=== PATIENT | male | born 1945 | race African-American/Black ===

== ENCOUNTER 2016-05-03 09:07 | Emergency (ER) | payer MEDICARE, MEDICAID ==
[2016-05-03 09:12] VITALS: BP 130/77
[2016-05-03] MEDS ORDERED: ALBUTEROL SULFATE HFA (90 MCG/PUFF) 8 GM MDI (1 MDI/ER DISP) IH ONE (09:52)
--- NOTE | 2016-05-03 09:55 | ER Document Report ---
ED General - General Chief Complaint: Cold Symptoms Stated Complaint: COUGH TRAVEL OUTSIDE OF THE [place] IN LAST 30 DAYS: No - HPI Patient complains to provider of: cough and flulike symptoms Notes: Patient coming in flulike symptoms feeling unwell myalgias cough fevers chills off and on for the last 4 days. Patient is a nonsmoker denies any recent travel or antibiotics. A she did not receive a flu shot this year patient otherwise is having a medical problems according to himself. Sent for hypertension. Patient denies any sick contacts. - Related Data Allergies/Adverse Reactions: No Known Allergies Allergy (Verified 05/03/16 09:07) Past Medical History - Social History Smoking Status: Former Smoker Chew tobacco use (# tins/day): No Frequency of alcohol use: None Drug Abuse: None Family History: Reviewed & Not Pertinent Patient has suicidal ideation: No Patient has homicidal ideation: No - Past Medical History Cardiac Medical History: Reports: Hx Hypercholesterolemia, Hx Hypertension Pulmonary Medical History: Reports: Hx COPD Renal/ Medical History: Denies: Hx Peritoneal Dialysis Review of Systems - Review of Systems Constitutional: No symptoms reported EENT: No symptoms reported Cardiovascular: No symptoms reported Respiratory: Cough Gastrointestinal: No symptoms reported Genitourinary: No symptoms reported Male Genitourinary: No symptoms reported Musculoskeletal: No symptoms reported Skin: No symptoms reported Hematologic/Lymphatic: No symptoms reported Neurological/Psychological: No symptoms reported -: Yes All other systems reviewed and negative Physical Exam - Vital signs Vitals: Temp Pulse Resp BP Pulse Ox 98.2 F 110 H 12 130/77 H 93 05/03/16 09:10 05/03/16 09:10 05/03/16 09:10 05/03/16 09:10 05/03/16 09:10 Interpretation: Normal - General General appearance: Appears well, Alert - HEENT Head: Normocephalic, Atraumatic Eyes: Normal Pupils: PERRL - Respiratory Respiratory status: No respiratory distress Chest status: Nontender Breath sounds: Wheezing - Fine wheezes Chest palpation: Normal - Cardiovascular Rhythm: Regular Heart sounds: Normal auscultation Murmur: No - Abdominal Inspection: Normal Distension: No distension Bowel sounds: Normal Tenderness: Nontender Organomegaly: No organomegaly - Back Back: Normal, Nontender - Extremities General upper extremity: Normal inspection, Nontender, Normal color, Normal ROM , Normal temperature General lower extremity: Normal inspection, Nontender, Normal color, Normal ROM , Normal temperature, Normal weight bearing. No: Kashif's sign - Neurological Neuro grossly intact: Yes Cognition: Normal Orientation: AAOx4 Juan R Coma Scale Eye Opening: Spontaneous [place] Coma Scale Verbal: Oriented Dante Coma Scale Motor: Obeys Commands Juan R Coma Scale Total: 15 Speech: Normal Motor strength normal: LUE, RUE, LLE, RLE Sensory: Normal - Psychological Associated symptoms: Normal affect, Normal mood - Skin Skin Temperature: Warm Skin Moisture: Dry Skin Color: Normal Course - Re-evaluation Re-evalutation: 05/03/16 14:28 Patient's chest x-ray is negative for pneumonia. Patient more likely has a viral syndrome viral upper respiratory infection. Patient was treated with bronchodilators and steroids. Patient was grateful for his care. Educated patient about these Tessalon Perles and also [id number] cough suppressant such as cough syrups and honey. Patient states understanding will follow his primary care physician will be discharged home. - Vital Signs Vital signs: Temp Pulse Resp BP Pulse Ox 98.2 F 110 H 12 130/77 H 93 05/03/16 09:10 05/03/16 09:10 05/03/16 09:10 05/03/16 09:10 05/03/16 09:10 Discharge - Discharge Clinical Impression: Bronchitis Condition: Good Disposition: HOME, SELF-CARE Instructions: Bronchitis ([facility]) Additional Instructions: Follow-up with your primary care physician. Take medication as prescribed. Return to the ER symptoms worsen. Prescriptions: Amoxicillin Trihydrate [Amoxil 500 mg Capsule] 500 mg PO TID 7 Days Prednisone [Deltasone] 40 mg PO DAILY 5 Days Referrals: CARLITA HUFFMAN MD [Primary Care Provider] - Follow up in 3-5 days
== END 2016-05-03 10:10 | disposition home or self-care (01) ==
LOC: ER 09:07
DX: J44.9 Chronic obstructive pulmonary disease, unspecified (principal); R05 Cough; M79.1 Myalgia; R50.9 Fever, unspecified; I10 Essential (primary) hypertension; Z87.891 Personal history of nicotine dependence
CPT/HCPCS: 99283; J3490

== ENCOUNTER 2016-06-10 07:49 | Emergency (ER) | payer MEDICARE, MEDICAID ==
--- NOTE | 2016-06-10 10:48 | ER Document Report ---
ED General - General Chief Complaint: Constipation Stated Complaint: ABDOMINAL PAIN Mode of Arrival: Ambulatory Information source: Patient Notes: 71 yr old male presents with complaints of chronic constipation. Notes he will have bowel movements once a week. Saw dr gonsales yesterday started on miralax. pt denies any abd pain or vomiting TRAVEL OUTSIDE OF THE [place] IN LAST 30 DAYS: No - HPI Onset: Other Onset/Duration: Persistent Quality of pain: No pain Severity: Mild Pain Level: Denies Associated symptoms: Other Exacerbated by: Denies Relieved by: Denies Similar symptoms previously: Yes Recently seen / treated by doctor: Yes - Related Data Allergies/Adverse Reactions: No Known Allergies Allergy (Verified 06/10/16 07:52) Past Medical History - Social History Smoking Status: Former Smoker Cigarette use (# per day): No Chew tobacco use (# tins/day): No Smoking Education Provided: No Frequency of alcohol use: None Drug Abuse: None Family History: Reviewed & Not Pertinent Patient has suicidal ideation: No Patient has homicidal ideation: No - Past Medical History Cardiac Medical History: Reports: Hx Hypercholesterolemia, Hx Hypertension Pulmonary Medical History: Reports: Hx COPD Renal/ Medical History: Denies: Hx Peritoneal Dialysis Surgical Hx: Negative Review of Systems - Review of Systems Notes: REVIEW OF SYSTEMS: CONSTITUTIONAL : Denies fever, chills, or sweats. Denies recent illness. EENT: Denies eye, ear, throat, or mouth pain or symptoms. Denies nasal or sinus congestion or discharge. Denies throat, tongue, or mouth swelling or difficulty swallowing. CARDIOVASCULAR: Denies chest pain. Denies palpitations or racing or irregular heart beat. Denies ankle edema. RESPIRATORY: Denies cough, cold, or chest congestion. Denies shortness of breath, difficulty breathing, or wheezing. GASTROINTESTINAL: Constipation GENITOURINARY: Denies difficulty urinating, painful urination, burning, frequency, blood in urine, or discharge. MUSCULOSKELETAL: Denies back or neck pain or stiffness. Denies joint pain or swelling. SKIN: Denies rash, lesions or sores. HEMATOLOGIC : Denies easy bruising or bleeding. LYMPHATIC: Denies swollen, enlarged glands. NEUROLOGICAL: Denies confusion or altered mental status. Denies passing out or loss of consciousness. Denies dizziness or lightheadedness. Denies headache. Denies weakness or paralysis or loss of use of either side. Denies problems with gait or speech. Denies sensory loss, numbness, or tingling. Denies seizures. PSYCHIATRIC: Denies anxiety or stress. Denies depression, suicidal ideation, or homicidal ideation. ALL OTHER SYSTEMS REVIEWED AND NEGATIVE. Dictation was performed using [employer] voice recognition software PHYSICAL EXAMINATION: GENERAL: Well-appearing, well-nourished and in no acute distress. HEAD: Atraumatic, normocephalic. EYES: Pupils equal round and reactive to light, extraocular movements intact, sclera anicteric, conjunctiva are normal. ENT: Nares patent, oropharynx clear without exudates. Moist mucous membranes. NECK: Normal range of motion, supple without lymphadenopathy LUNGS: Breath sounds clear to auscultation bilaterally and equal. No wheezes rales or rhonchi. HEART: Regular rate and rhythm without murmurs ABDOMEN: Soft, nontender, nondistended abdomen. No guarding, no rebound. No masses appreciated. Musculoskeletal: Normal range of motion, no pitting or edema. No cyanosis. NEUROLOGICAL: Cranial nerves grossly intact. Normal speech, normal gait. Normal sensory, motor exams PSYCH: Normal mood, normal affect. SKIN: Warm, Dry, normal turgor, no rashes or lesions noted. Physical Exam - Vital signs Vitals: Temp Pulse Resp BP Pulse Ox 98.9 F 98 18 143/83 H 97 06/10/16 07:54 06/10/16 07:54 06/10/16 07:54 06/10/16 07:54 06/10/16 07:54 Course - Re-evaluation Re-evalutation: 06/10/16 12:01 Very happy well-appearing male no distress. Patient just requests medication, acute abdominal series was negative After performing a Medical Screening Examination, I estimate there is LOW risk for ACUTE APPENDICITIS, BOWEL OBSTRUCTION, ACUTE CHOLECYSTITIS, PERFORATED DIVERTICULITIS, INCARCERATED HERNIA, PANCREATITIS, or PERFORATED ULCER, thus I consider the discharge disposition reasonable. Also, there is no evidence or peritonitis, sepsis, or toxicity. The patient and I have discussed the diagnosis and risks, and we agree with discharging home with close follow-up with the understanding that symptoms and presentations can change. We also discussed returning to the Emergency Department immediately if new or worsening symptoms occur. We have discussed the symptoms which are most concerning (e.g., bloody stool, fever, changing or worsening pain, intractable vomiting - standard verbal up date) that necessitate immediate return. - Vital Signs Vital signs: Temp Pulse Resp BP Pulse Ox 98.9 F 98 18 143/83 H 97 06/10/16 07:54 06/10/16 07:54 06/10/16 07:54 06/10/16 07:54 06/10/16 07:54 - Diagnostic Test Radiology reviewed: Image reviewed, Reports reviewed Discharge - Discharge Clinical Impression: Constipation Qualifiers: Constipation type: unspecified constipation type Qualified Code(s): K59.00 - Constipation, unspecified Condition: Stable Disposition: HOME, SELF-CARE Instructions: Constipation ([facility]) Prescriptions: Magnesium Citrate 295 ml PO DAILY #1 solution Referrals: CARLITA GONSALES MD [Primary Care Provider] - Follow up tomorrow
[2016-06-10 11:54] VITALS: BP 118/78
== END 2016-06-10 11:15 | disposition home or self-care (01) ==
LOC: ER 07:49
DX: K59.00 Constipation, unspecified (principal); I10 Essential (primary) hypertension; J44.9 Chronic obstructive pulmonary disease, unspecified; Z87.891 Personal history of nicotine dependence
CPT/HCPCS: 74022; 99283

== ENCOUNTER 2018-03-08 09:32 | Emergency (ER) | payer MEDICARE, MEDICAID ==
[2018-03-08] MEDS ORDERED: ACETAMINOPHEN 325 MG TABLET PO ONE (10:00)
[2018-03-08] MEDS ORDERED: LIDOCAINE 5% (700 MG) TRANSDERMAL ADH..PATCH TP ONE (10:01)
--- NOTE | 2018-03-08 10:15 | ER Document Report ---
ED Medical Screen (RME) - General Chief Complaint: Neck Pain < 24hrs old Stated Complaint: NECK PAIN Time Seen by Provider: 03/08/18 09:55 Mode of Arrival: Ambulatory Information source: Patient TRAVEL OUTSIDE OF THE [place] IN LAST 30 DAYS: No - HPI Patient complains to provider of: Neck pain Onset: Other - 72-year-old male with a past medical history significant for hyper lipidemia as well as hypertension that presents for evaluation of pain in the neck. Went to sleep in his usual state of health says that he woke up and had some pain in the neck. He denies any recent trauma, fevers, chills, lightheadedness, abdominal pain diarrhea constipation chest pain shortness of breath diaphoresis. Says that this is happened once in the past and at that time it was attributed to a muscle strain. Nothing is seem to make it better, he did take a BC powder this morning which did seem to ease it up a little bit. It is made worse by trying to move it. - Related Data Allergies/Adverse Reactions: No Known Allergies Allergy (Verified 03/08/18 09:33) Past Medical History - General Information source: Patient - Social History Cigarette use (# per day): No Frequency of alcohol use: None Drug Abuse: None - Past Medical History Cardiac Medical History: Reports: Hx Hypercholesterolemia, Hx Hypertension Pulmonary Medical History: Reports: Hx COPD Renal/ Medical History: Denies: Hx Peritoneal Dialysis Review of Systems - Review of Systems -: Yes All other systems reviewed and negative Physical Exam - Vital signs Vitals: Temp Pulse Resp BP Pulse Ox 98.0 F 83 18 133/75 H 100 03/08/18 09:51 03/08/18 09:51 03/08/18 09:51 03/08/18 09:51 03/08/18 09:51 Interpretation: Normal - General General appearance: Appears well, Alert - HEENT Head: Normocephalic, Atraumatic Eyes: Normal Pupils: PERRL Neck: Other - Tenderness to palpation over the left trapezius - Respiratory Respiratory status: No respiratory distress Chest status: Nontender Breath sounds: Normal Chest palpation: Normal - Cardiovascular Rhythm: Regular Heart sounds: Normal auscultation Murmur: No - Abdominal Inspection: Normal Distension: No distension Bowel sounds: Normal Tenderness: Nontender Organomegaly: No organomegaly - Back Back: Normal, Nontender - Extremities General upper extremity: Normal inspection, Nontender, Normal color, Normal ROM, Normal temperature General lower extremity: Normal inspection, Nontender, Normal color, Normal ROM, Normal temperature, Normal weight bearing. No: Kashif's sign - Neurological Neuro grossly intact: Yes Cognition: Normal Orientation: AAOx4 Juan R Coma Scale Eye Opening: Spontaneous [place] Coma Scale Verbal: Oriented Juan R Coma Scale Motor: Obeys Commands [place] Coma Scale Total: 15 Speech: Normal Motor strength normal: LUE, RUE, LLE, RLE Sensory: Normal - Psychological Associated symptoms: Normal affect, Normal mood - Skin Skin Temperature: Warm Skin Moisture: Dry Skin Color: Normal Course - Re-evaluation Re-evalutation: 03/08/18 10:15 72-year-old neurologically intact gentleman the presents for evaluation of atraumatic pain in the neck he woke up after sleeping with this pain. Took a BC powder which seemed to help a little bit but was concerned so came forward. He has had a muscle spasm in the past which felt similar to this. Given his age we will proceed with cervical spine imaging. Do not believe this represents a serious likely fracture however underlying will administer Tylenol for analgesia and administer Lidoderm patch. We will plan for reassessment in the emergency department thereafter. 03/08/18 10:38 On reevaluation this patient has improvement in his symptoms, he is able to range of some neck more readily, his CT scan shows chronic changes without any acute findings. Believe he is safe for discharge with return precautions and conservative man agement at home. He and his were counseled at the bedside and offered a chance to ask questions. At the time of discharge she was ambulatory without any assistance neurologically intact. - Vital Signs Vital signs: Temp Pulse Resp BP Pulse Ox 98.0 F 83 18 133/75 H 100 03/08/18 09:51 03/08/18 09:51 03/08/18 09:51 03/08/18 09:51 03/08/18 09:51 Doctor's Discharge - Discharge Clinical Impression: Cervicalgia, Muscle spasm Condition: Good Disposition: HOME, SELF-CARE Instructions: Neck [facility] (Cervical Strain) ([facility]) Additional Instructions: You were seen today for your neck strain. You had evaluation including a physical exam and a CAT scan of your neck. You should use Tylenol, 1000 mg every 6 hours as needed for pain. This is usually 3 tablets of the normal strength Tylenol. You can use 400 mg of ibuprofen every 6 hours as well as needed for pain. You have been given a prescription for a stronger muscle relaxer, use this only if you need it. Return in case you have any worsening pain in the neck, numbness or weakness or feel like you are unable to walk. Prescriptions: Acetaminophen [Tylenol 325 mg Tablet] 975 mg PO Q6HP PRN #60 tablet PRN Reason: Cyclobenzaprine HCl [Flexeril 5 mg Tablet] 5 mg PO TID #15 tablet Ibuprofen [Ibu] 400 mg PO Q6 PRN #40 tablet PRN Reason: Referrals: CARLITA HUFFMAN MD [Primary Care Provider] - Follow up as needed
--- NOTE | 2018-03-08 10:29 | RADIOLOGY REPORT (SQ) ---
EXAM DESCRIPTION: CT CERVICAL SPINE WITHOUT COMPLETED DATE/TIME: 03/08/2018 10:18 am REASON FOR STUDY: concern for facet injury left sided COMPARISON: None. TECHNIQUE: Axial images acquired through the cervical spine without intravenous contrast. Images re viewed with lung, soft tissue and bone windows. Reconstructed coronal and sagittal MPR images review ed. Images stored on PACS. All CT scanners at this facility use dose modulation, iterative reconstruction, and/or weight based d osing when appropriate to reduce radiation dose to as low as reasonably achievable (ALARA). [facility]: Dose Right [facility]: CareDose [facility]: Dose Right [facility]: Teradose 4D [facility]: Smart Ning RADIATION DOSE: CT Rad equipment meets quality standard of care and radiation dose reduction techniq ues were employed. CTDIvol: 15.0 mGy. DLP: 322 mGy-cm. mGy. LIMITATIONS: None. FINDINGS: ALIGNMENT: Anatomic. MINERALIZATION: Normal. VERTEBRAL BODIES: No fractures or dislocation. DISCS: Multilevel disc space narrowing with osteophytes. FACETS, LATERAL MASSES, POSTERIOR ELEMENTS: Facet arthropathy. No fractures. No dislocation. No ac afia findings. HARDWARE: None in the spine. VISUALIZED RIBS: No fractures. LUNG APICES AND SOFT TISSUES: No significant or acute findings. OTHER: No other significant finding. IMPRESSION: CHRONIC DEGENERATIVE CHANGES. NO ACUTE FINDINGS. TECHNICAL DOCUMENTATION: JOB ID: [id number] Quality ID # [id number]: Final reports with documentation of one or more dose reduction techniques (e.g., Au tomated exposure control, adjustment of the mA and/or kV according to patient size, use of iterative reconstruction technique) 2010 [employer]- All Rights Reserved Reading location - IP/workstation name: [email or web address]
[2018-03-08 10:48] VITALS: BP 117/78
== END 2018-03-08 10:49 | disposition home or self-care (01) ==
LOC: ER 09:32
DX: M62.830 Muscle spasm of back (principal); M54.2 Cervicalgia; E78.5 Hyperlipidemia, unspecified; I10 Essential (primary) hypertension
CPT/HCPCS: 99283; 72125; A9270

== ENCOUNTER 2018-04-05 07:27 | Day surgery (SDC) | payer MEDICARE, MEDICAID ==
[~2018-04-05 07:27] MED LIST: BUPIVACAINE HCL 0.75% INJ/PF (7.5 MG/1 ML) 10 ML SDV OD PRN; KETOROLAC TROMETHAMINE 0.45% 4 DROP/0.4 ML DROPERETTE OD PRN; LIDOCAINE 4% INJ/PF (40 MG/ML) 5 ML AMPUL OD PRN
[2018-04-05] MEDS: TETRACAINE HCL 0.5% OPH SOLN 0.6 ML DROPERETTE OD PRN ×2 (07:54→08:18)
[2018-04-05] MEDS: BESIFLOXACIN HCL 0.6% OPH SUSP 5 ML BOTTLE OD PRN ×4 (07:55→09:10)
[2018-04-05] MEDS: TROPICAMIDE 1% OPH SOLN 3 ML OD PRN ×3 (07:55→08:16)
[2018-04-05] MEDS: CYCLOPENTOLATE 0.2%/PHENYLEPHRINE 1% OPH SOLN 2 ML OD PRN ×3 (07:55→08:16)
[2018-04-05] MEDS ORDERED: MIDAZOLAM 2 MG/2 ML INJ ONE (08:12)
[2018-04-05] MEDS ORDERED: FENTANYL CITRATE INJ/PF 100 MCG/2 ML AMPUL ONE (08:12)
[2018-04-05] MEDS: EPINEPHRINE INJ/PF 1 MG/1 ML AMPULE ONE ×2 (08:55)
[2018-04-05] MEDS: CHONDR SU A NA/HYALUR INTRAOC KIT (SURGICARE) ONE ×2 (08:55)
[2018-04-05] MEDS: LIDOCAINE 1% INJ-PF (10 MG/ML) 30 ML SDV ONE ×2 (08:55)
--- NOTE | 2018-04-05 09:42 | [facility] OPERATIVE REPORT E ---
[facility] Operative Report NAME: WILLIE ROBERT AGE: 73Y DATE OF SURGERY: 04/05/2018 ROOM: PREOPERATIVE DIAGNOSIS: Cataract, right eye. POSTOPERATIVE DIAGNOSIS: Cataract, right eye. PROCEDURE PERFORMED: Phacoemulsification with posterior chamber intraocular lens, right eye. SURGEON: NEIL HIDALGO M.D. ANESTHESIA: Topical with MAC. INDICATIONS FOR SURGERY: Difficulty reading small print and driving. PROCEDURE: The patient was brought to the operating room and placed on the operative table. Following tetracaine drops, topical anesthesia was administered. This consisted of instrument wipe pledgets soaked in a solution of 4% Xylocaine mixed with 0.75% Marcaine in a 1:2 ratio. A 2 x 1 cm pledget was placed in the superior fornix. A 1 x 1 cm pledget was placed in the inferior fornix. The eye was patched shut for 5 minutes. The patch was removed. The eye was sterilely prepped and draped in the usual manner. Lid speculum was placed in the eye. The pledgets were removed and 4-0 black silk sutures were placed around the superior and the inferior rectus muscles to be used as traction. A conjunctival peritomy was made at the 10 o'clock position. Hemostasis was obtained with bipolar cautery. A posterior limbal groove was created using a crescent knife and dissected anteriorly towards the cornea. A sharp point blade was used to create a paracentesis site at the 2 o'clock position. A 2.4 mm keratome was used to enter the anterior chamber through the groove. Viscoelastic was injected into the anterior chamber. An anterior capsulotomy was performed using Utrata forceps in a capsulorrhexis fashion. Hydrodissection and hydrodelineation were performed. Phacoemulsification was performed in [id number]-gwh-[id number] technique. Total phaco time was 6.54 CDE. Following this, the I/A unit was used to remove residual cortex. Viscoelastic was injected into the capsular bag. Intraocular lens model [id number], 18.5 diopters, serial number [id number], was placed in the capsular bag. The I/A unit was used to remove residual viscoelastic. The wound was seen to be watertight under high and low pressure, and no sutures were placed. The intraocular lens was well centered. The pressure was adjusted in the eye to normal pressure. The 4-0 black silk sutures and lid speculum were removed. The eye was shielded after Besivance drops were placed. The patient tolerated the procedure well and was sent to the recovery room in good condition. DICTATING PHYSICIAN: NEIL HIDALGO M.D. [id number] PHY#: [id number] ID: [id number] JOB#: [id number] ACCT: [id number] cc:NEIL HIDALGO M.D. >
--- NOTE | 2018-04-05 09:42 | [facility] DISCHARGE SUMMARY E ---
[facility] Discharge Summary NAME: WILLIE ROBERT AGE: 73Y ADMITTED: 04/05/2018 DISCHARGED: 04/05/2018 FINAL DIAGNOSIS: Cataract, right eye. HOSPITAL COURSE: The patient is a 73-year-old gentleman who underwent uneventful cataract extraction with intraocular lens implant, right eye, on 04/05/2018. He will be discharged to home. He was instructed to resume preoperative medications; to take Tylenol as needed for discomfort; to keep his eye shielded; to use Pred Forte, Prolensa, and Besivance at 3 p.m. and 8 p.m.; and to follow up in my office in 1 day. DICTATING PHYSICIAN: NEIL HIDALGO M.D. [id number] PHY#: [id number] ID: [id number] JOB#: [id number] ACCT: [id number] cc:NEIL HIDALGO M.D. >
== END 2018-04-05 09:57 | disposition home or self-care (01) ==
LOC: SC 07:27
PROVIDERS: ATTEND Ophthalmology
DX: H25.811 Combined forms of age-related cataract, right eye (principal); H25.12 Age-related nuclear cataract, left eye; H31.091 Other chorioretinal scars, right eye; H18.413 Arcus senilis, bilateral; H52.4 Presbyopia; J44.9 Chronic obstructive pulmonary disease, unspecified; M19.90 Unspecified osteoarthritis, unspecified site; Z79.899 Other long term (current) drug therapy; I11.9 Hypertensive heart disease without heart failure; Z87.891 Personal history of nicotine dependence; Z79.51 Long term (current) use of inhaled steroids
CPT/HCPCS: 66984; V2632; J2250; J3490 ×4; A9270; J0171; J3010